=== PATIENT | female | born 1955 | race Caucasian/White ===

== ENCOUNTER → 2020-04-17 | Outpatient (CLI) | payer BC ==
[~2020-04-17] MED LIST: ENTERIC ASPIRI325 MG PO; HYDROCODONE BIT1 T11 PO; PERCOCET 325 MG1 TA7 PO
== END | disposition home or self-care (01) ==
LOC: COVID19 10:09
PROVIDERS: ATTEND Internal Medicine
DX: U07.1 COVID-19 (principal)